=== PATIENT | male | born 1995 | race Caucasian/White ===

== ENCOUNTER 2022-08-23 10:08 | Emergency (ER) | payer BC, SELFPAY ==
[2022-08-23] VITALS (25 sets, daily range): BP systolic 131–147; BP diastolic 57–82; PULSE 61–68; RESP 14–18; TEMP 36.5–36.8; O2SAT 99–100
--- NOTE | 2022-08-23 12:13 | ED.GENADULT ---
HPI - General Adult General Chief complaint: Unspecified Stated complaint: nosebleed 1 week ago/w[place]sworth Time Seen by Provider: 08/23/22 12:04 History of Present Illness HPI narrative: Pt presents with nosebleed a week ago. Pt says he has not felt himself since. Pt feels intermittently jumpy like he is having adrenaline henderson. Pt has intermittent WADSWORTH's. Pt says he just doesn't feel right. Pt says he doesn't have much of an appetite. Pt has no history of anxiety or panic. Pt just moved to [facility] and has no PCP. Related Data Home Medications Medication Instructions Recorded Confirmed No Home Medications 08/23/22 08/23/22 Allergies Allergy/AdvReac Type Severity Reaction Status Date / Time No Known Allergies Allergy Verified 08/23/22 10:15 Review of Systems Review of Systems: All systems reviewed & are unremarkable except as noted in HPI and below Exam Const: General: cooperative, healthy appearing, comfortable and no acute distress Nutritional Appearance: average body habitus and well nourished Orientation/consciousness: patient oriented x3 Limitations: no limitations HENMT: Head: normal to inspection Mouth: Yes Normal oral and palatal mucosa present Eyes: General: appearance normal, both eyes and all related structures Conjunctivae: conjunctivae normal EOM: EOMs intact bilaterally Neck: Neck: normal visual inspection, full ROM, no lymphadenopathy and supple Resp: Effort & Inspection: normal respiratory effort Auscultation: clear to auscultation bilaterally Cardio: Rate: regular rate Rhythm: regular rhythm GI: Inspection: normal to inspection GI Palp: Yes Soft to palpation and Yes No hepatosplenomegaly present Auscultation: normal bowel sounds Skin: General skin exam: normal color Neuro: General: patient oriented x3 and moves all extremities Cranial nerves: Yes CN's II-XII intact bilaterally Speech: normal speech Gait exam (Neuro): Normal gait present Motor exam (neuro): 5/5 motor strength present throughout Sensory Exam: normal sensation Extrem: General: normal to inspection Psych: Appearance: grossly normal Mental Status: mental status grossly normal Speech and movement: Normal speech and movement present Affect: normal affect Attitude: cooperative Thought process: Normal thought process present Thought content: Yes Normal thought content present Judgement: Good judgement present (Psych) Course Vital Signs Vital signs: Vital Signs Temperature 97.7 F 08/23/22 10:10 Pulse Rate 68 08/23/22 10:10 Respiratory Rate 18 08/23/22 10:10 Blood Pressure 144/82 H 08/23/22 10:10 Pulse Oximetry 100 08/23/22 10:10 Oxygen Delivery Room Air 08/23/22 10:10 Temperature 98.3 F 08/23/22 12:02 Pulse Rate 66 08/23/22 14:46 Respiratory Rate 16 08/23/22 14:46 Blood Pressure 136/74 08/23/22 14:46 Pulse Oximetry 100 08/23/22 14:46 Oxygen Delivery Room Air 08/23/22 10:10 Medical Decision Making Vital Signs Vital Signs: Vital Signs Temperature 97.7 F 08/23/22 10:10 Pulse Rate 68 08/23/22 10:10 Respiratory Rate 18 08/23/22 10:10 Blood Pressure 144/82 H 08/23/22 10:10 Pulse Oximetry 100 08/23/22 10:10 Oxygen Delivery Room Air 08/23/22 10:10 Temperature 98.3 F 08/23/22 12:02 Pulse Rate 66 08/23/22 14:46 Respiratory Rate 16 08/23/22 14:46 Blood Pressure 136/74 08/23/22 14:46 Pulse Oximetry 100 08/23/22 14:46 Oxygen Delivery Room Air 08/23/22 10:10 Lab Data Result diagrams: 08/23/22 12:43 08/23/22 12:43 Labs: Lab Results 08/23/22 08/23/22 08/23/22 Range/Units 12:43 12:43 12:43 WBC 5.8 (4.5-10.0) K/mm3 RBC 4.97 (4.6-6.20) M/mm3 Hgb 14.8 (14.0-18.0) g/dL Hct 44.2 (42.0-52.0) % MCV 88.9 (80-100) fl MCH 29.8 (26-34) pg MCHC 33.5 (32-36) g/dl RDW 13.2 (11.5-14.5) % Plt Count 255 (150-375) k/mm3 MPV 10.2 (7.4-10.4) fl Immature Gran
[2022-08-23 13:01] LABS: Basophils Percent Auto 0.2 % (0.2-1.2); Eosinophils Absolute Auto 0.1 K/mm3 (0-0.3); Eosinophils Percent Auto 0.9 % (0-4.4); Hematocrit 44.2 % (42.0-52.0); Hemoglobin 14.8 g/dL (14.0-18.0); Immature Granulocyte Absolute 0.02 K/mm3 (0.00-0.031); Immature Granulocyte Percent A 0.3 % (0-0.5); Lymphocytes Absolute Auto 1.17 K/mm3 (0.9-3.2); Lymphocytes Percent Auto 20.2 % (18.3-44.2); Mean Corpuscular HGB Conc 33.5 g/dl (32-36); Mean Corpuscular Hemoglobin 29.8 pg (26-34); Mean Corpuscular Volume 88.9 fl (80-100); Mean Platelet Volume 10.2 fl (7.4-10.4); Monocytes Absolute Auto 0.5 K/mm3 (0.1-0.6); Monocytes Percent Auto 8.3 % (2.6-8.5); Neutrophils Absolute Auto 4.1 K/mm3 (1.3-6.7); Neutrophils Percent Auto 70.1 % (45.5-73.1); Platelet Count Result 255 k/mm3 (150-375); Red Blood Count 4.97 M/mm3 (4.6-6.20); Red Cell Distribution Width 13.2 % (11.5-14.5); White Blood Count 5.8 K/mm3 (4.5-10.0)
[2022-08-23 13:10] LABS: Alanine Aminotransferase 15 U/L (6-50); Alkaline Phosphatase 65 U/L (38-126); Anion Gap 15 mmol/L (8-16); Aspartate Amino Transferase 24 U/L (17-59); Bilirubin,Total 0.8 mg/dL (0.2-1.3); Blood Urea Nitrogen 13 mg/dL (9-20); Calcium 9.1 mg/dL (8.4-10.2); Carbon Dioxide 26 mmol/L (22-30); Chloride 101 mmol/L (98-107); Estimated CRCL calculation 106 ml/min; Estimated Glomerular Filt Rate > 60; Glucose 94 mg/dL (65-110); Potassium 3.7 mmol/L (3.4-5.0); Sodium 142 mmol/L (137-145)
== END 2022-08-23 15:00 | disposition home or self-care (01) ==
PROVIDERS: Emergency Provider Emergency Medicine
DX: R51.9 Headache, unspecified (principal)
CPT/HCPCS: 36415; 80053; 84443; 85025; 99283

== ENCOUNTER 2025-08-03 17:48 | Emergency (ER) | payer BC, SELFPAY ==
--- NOTE | ~2025-08-03 | CT_ITS ---
EXAMINATION: CT abdomen pelvis wo con, 08/03/2025 18:10 CDT HISTORY: Onset this AM, Rt. flank pain COMPARISON: No comparisons available. TECHNIQUE: CT scan of the abdomen and pelvis was performed without IV contrast. One or more of the following dose reduction techniques were used: automated exposure control, adjustment of the mA and/or kV according to patient size, use of iterative reconstruction technique. Unless otherwise stated, incidental findings do not require dedicated follow up imaging FINDINGS: CT abdomen: LUNG BASES: The lung bases are clear. The visualized portions of the heart and pericardium are unremarkable. LIVER: Unremarkable, liver contours intact, no lesions. SPLEEN: Unremarkable, no splenomegaly. KIDNEYS: Moderate to severe right-sided hydronephrosis and hydroureter, no renal calculi are identified or ureteral calculi. Right Kidney: Unremarkable. No calculi. No hydronephrosis. Left Kidney: Unremarkable. No calculi. No hydronephrosis ADRENAL GLANDS: Unremarkable. PANCREAS: Unremarkable. GALLBLADDER/BILIARY: Unremarkable. No biliary dilatation. STOMACH AND ESOPHAGUS: Visualized stomach and esophagus within normal limits. BOWEL/MESENTERY: Moderate fecal content, no colitis or diverticulitis. Appendix normal. Mesentery normal. No thickening or dilated loops of small bowel. ADENOPATHY/RETROPERITONEUM: No lymphadenopathy. AORTA/VASCULATURE: Normal caliber aorta. FREE FLUID OR FREE AIR: None. CT pelvis: SOLID ORGANS/REPRODUCTIVE: Unremarkable. BLADDER: Within normal limits. OSSEOUS STRUCTURES: No acute osseous abnormality.No suspicious lesions. OVERLYING SOFT TISSUES: Unremarkable. IMPRESSION: 1. Right-sided hydronephrosis and hydroureter. There is no obstruction calcified ureteral calculus. Differential includes an obstructing noncalcified calculus or stricture. Correlate with urinalysis. Follow-up is recommended to assess resolution Reviewed, dictated and finalized at location P. IMPRESSION: 1. Right-sided hydronephrosis and hydroureter. There is no obstruction calcifie d ureteral calculus. Differential includes an obstructing noncalcified calculus or stricture. Correlate with urinalysis. Follow-up is recommended to assess re solution
[2025-08-03 17:48] VITALS: BP 157/97; PULSE 84; RESP 16; TEMP 36.6; O2SAT 100
--- OUTSIDE RECORDS SUMMARY | 2025-08-03 17:51 | XMS_ITS | Clinical Summary ---
Author Organization [facility] Address [address] [place] [address] Phone Care Team Providers Care Dairy Farm Supervisor Name Role Phone Provider, None Primary Care Provider Unavailabl e Allergies Active Allergy Reactions Criticality Noted Date Comments Hydrocodone Hives 02/04/2016 Medications AMOXICILLIN PO Take by mouth. 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 Gender Identity Not on file Sexual Orientation Not on file Last Filed Vital Signs Vital Sign Reading Time Taken Comments Blood Pressure 139/77 06/05/2018 7:48 AM CDT Pulse 83 06/05/2018 7:48 AM CDT Temperature 36.8 C (98.3 F) 05/27/2018 12:42 PM CDT Respiratory Rate 16 06/05/2018 7:48 AM CDT Oxygen Saturation 99% 05/27/2018 12:42 PM CDT Inhaled Oxygen Concentration - - Weight 64 kg (141 lb) 06/15/2018 2:08 PM CDT Height 177.8 cm (5' 10) 06/15/2018 2:08 PM CDT Body Mass Index 20.23 06/15/2018 2:08 PM CDT Plan of Treatment Health Maintenance Due Date Last Done Comments Hepatitis C Virus (HCV) Screening 1995 TdaP Immunization 1995 Human Papillomavirus (HPV) Immunization (1 - 3-dose SCDM series) 02/17/2020 Influenza Immunization (#1) 2025 SARS-COV-2 Immunization ( - season) 2025 Respiratory Syncytial Virus (RSV) Immunization (Adult) (1 - 1-dose 75+ series) 02/17/2068 DTaP/Tdap/Td Immunization Discontinued 1997, 11/14/1996, 09/05/1996, Additional history exists Hepatitis B Immunization Completed 998, 10/10/1996, 09/05/1996 Meningococcal Immunization (ACWY) Aged Out No longer eligible based on patient's age to complete this topic Pneumococcal Immunization Combined Aged Out No longer eligible based on patient's age to complete this topic Rotavirus Immunization Aged Out No lo nger eligible based on patient's age to complete this topic Insurance Care Teams Dairy Farm Supervisor Relationship Specialty Start Date End Date Provider, None [place] PCP - General 03/26/13
[2025-08-03] MEDS: SODIUM CHLORIDE 0.9% IV 1,000 ML 999 ML IV CONT (18:06)
[2025-08-03] MEDS: ONDANSETRON INJ 4 MG/2 ML VIAL IV PUSH (18:07)
[2025-08-03] MEDS: KETOROLAC 30 MG/ML VIAL (*BKC) IV PUSH (18:07)
--- NOTE | 2025-08-03 18:11 | PC.NURSE ---
On 08/03/25, the student, [sheldon sykes], provided care and [facility] on this [facility]. I have reviewed the student's documentation and agree with the findings.
[2025-08-03 18:15] LABS: Hematocrit 44.3 % (40.0-54.0); Hemoglobin 14.9 g/dL (14.0-18.0); Immature Granulocyte Percent A 0.4 % (0.0-0.0); Lymphocytes Absolute Auto 0.84 K/mm3 (1.10-4.50); Mean Corpuscular HGB Conc 33.6 g/dL (32-36); Mean Corpuscular Hemoglobin 29.2 pg (27.0-31.0); Mean Corpuscular Volume 86.7 fL (78.0-102.0); Nucleated Red Blood Cells Absolute Auto 0.00 K/mm3 (0.00-0.00); Nucleated Red Blood Cells Perc 0.0 % (0-0.0); Platelet Count Result 307 K/mm3 (150-420); Red Blood Count 5.11 M/mm3 (4.70-6.10); White Blood Count 14.0 K/mm3 (4.8-10.8)
[2025-08-03 18:22] LABS: INR 1.0; Partial Thromboplastin Time 26.8 Sec (23.9-30.70); Prothrombin Time 10.9 Seconds (9.50-12.1)
[2025-08-03 18:39] LABS: Alanine Aminotransferase 16 U/L (6-50); Albumin Level 5.4 g/dL (3.5-5.1); Alkaline Phosphatase 72 U/L (38-126); Anion Gap 15 mmol/L (4-12); Aspartate Amino Transferase 31 U/L (17-59); Bilirubin,Total 1.0 mg/dL (0.2-1.3); Blood Urea Nitrogen 14 mg/dL (9-20); Calcium 10.0 mg/dL (8.4-10.2); Carbon Dioxide 23 mmol/L (22-30); Chloride 101 mmol/L (98-107); Estimated CRCL calculation 68 ml/min; Estimated Glomerular Filt Rate > 60; Glucose 115 mg/dL (65-110); Osmolality Calculated 289 mOsm/kg (285-295); Potassium 3.9 mmol/L (3.4-5.0); Sodium 139 mmol/L (137-145); Total Protein 10.7 g/dL (6.3-8.2)
--- OUTSIDE RECORDS SUMMARY | 2025-08-03 18:39 | XMS_ITS | Clinical Summary ---
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
[2025-08-03 18:40] LABS: Add Urine Microscopic? NO; Appearance Urine Clear (Clear); Glucose Urine UA Negative (Negative); Leukocyte Esterase Ur Negative LEU/UL (Negative); Nitrate Urine Negative (Negative); Specific Grav Ur 1.025 (1.010-1.020)
[2025-08-03 18:54] LABS: Lipase 66 U/L (23-300)
--- NOTE | 2025-08-03 19:43 | ED_ITS ---
HPI - Abdominal Pain General Chief Complaint: Urogenital-Male Stated Complaint: rt. side flank pain Time Seen by Provider: 08/03/25 17:54 Source: patient and family Mode of arrival: ambulatory Limitations: no limitations History of Present Illness HPI narrative: this is a 30-year-old male who presents with some right-sided flank pain with no abdominal pain no radiation of his pain no dysuria or hematuria no fever chills no chest pain or shortness of breath. Patient states that he has have a history of kidney stones in the past. MD elicited complaint: flank pain Onset (ago): hour(s) Pain Consistency: intermittent Location: R flank Severity: severe Pain scale (0-10): 10 Quality: aching Radiation: R flank Migration to: no migration Related Data Allergies Allergy/AdvReac Type Severity Reaction Status Date / Time No Known Allergies Allergy Verified 08/03/25 18:10 Review of Systems 2 Review of Systems: All systems reviewed & are unremarkable except as noted in HPI and below PMFSH Past Medical History Medical History History of kidney stones Exam 2 Const: General: healthy appearing and no acute distress Nutritional Appearance: well nourished Orientation/consciousness: patient oriented x3 Resp: Effort & Inspection: normal respiratory effort Auscultation: clear to auscultation bilaterally Cardio: Rate: regular rate Rhythm: regular rhythm GI: GI Palp: Yes Soft to palpation Auscultation: normal bowel sounds : General: Yes CVA tenderness ( right flank pain to palpation) Back/Spine/Pelvis: Back: CVA tenderness Course Course Emergency Course: medical decision making narrative: The patient was evaluated by myself in the emergency department. History obtained from patient who is an independent historian and physical exam performed and witnessed by nurse. CT scan performed shows right-sided mild hydronephrosis with some possible adhesion but no kidney stone visualized. White count mildly elevated, the patient did receive 30mg of Toradol IV and additional 2mg IV morphine along with IV Zofran. Urinalysis with some few red cells. Repeat assessment Patient doing well on repeat exam with no acute distress Symptoms have improved since arrival to the emergency department Repeat vitals are stable Patient agrees with discussion and after shared medical decision making and agrees with discharge. All questions answered to the patient's satisfaction. Follow-up with primary care within 3 to 5 days for further evaluation treatment. Vital Signs Vital signs: Vital Signs Temperature 36.6 C 08/03/25 17:48 Pulse Rate 84 08/03/25 17:48 Respiratory Rate 16 08/03/25 17:48 Blood Pressure 157/97 H 08/03/25 17:48 Pulse Oximetry 100 08/03/25 17:48 Oxygen Delivery Room Air 08/03/25 17:48 Temperature 36.6 C 08/03/25 17:48 Pulse Rate 84 08/03/25 17:48 Respiratory Rate 16 08/03/25 17:48 Blood Pressure 157/97 H 08/03/25 17:48 Pulse Oximetry 100 08/03/25 17:48 Oxygen Delivery Room Air 08/03/25 17:48 MDM - Abdominal Pain Lab Data 08/03/25 18:07 08/03/25 18:07 Labs: Lab Results 08/03/25 08/03/25 Range/Units 18:07 18:32 WBC 14.0 H (4.8-10.8) K/mm3 RBC 5.11 (4.70-6.10) M/mm3 Hgb 14.9 (14.0-18.0) g/dL Hct 44.3 (40.0-54.0) % MCV 86.7 (78.0-102.0) fL MCH 29.2 (27.0-31.0) pg MCHC 33.6 (32-36) g/dL RDW 12.8 (11.6-14.4) % Plt Count 307 (150-420) K/mm3 MPV 10.0 (8.7-11.0) fl Immature Gran % (Auto) 0.4 H (0.0-0.0) % Neut % (Auto) 87.5 H (50.0-70.0) % Lymph % (Auto) 6.0 L (18.0-42.0) % [place] % (Auto) 5.9 (2.0-11.0) % Eos % (Auto) 0.1 L (1.0-6.0) % Baso % (Auto) 0.1 (0.0-1.0) % Lymph # (Auto) 0.84 L (1.10-4.50) K/mm3 [place] # (Auto) 0.83 (0.10-0.90) K/mm3 Eos # (Auto) 0.02 (0.02-0.50) K/mm3 Baso # (Auto) 0.02 (0.00-0.10) K/mm3 Abs Immat Gran (auto) 0.06 H (0.00-0.00) K/mm3 Absolute Neuts (auto) 12.23 H (1.70-7.20) K/mm3 Absolute Nucleated RBC 0.00 (0.00-0.00) K/mm3 Nucleated RBC % 0.0 (0-0.0) % PT 10.9 (9.50-12.1) Seconds INR 1.0 APTT 26.8 (23.9-30.70) Sec Sodium 139 (137-145) mmol/L Potassium 3.9 (3.4-5.0) mmol/L Chloride 101 (98-107) mmol/L Carbon Dioxide 23 (22-30) mmol/L Anion Gap 15 H (4-12) mmol/L BUN 14 (9-20) mg/dL Creatinine 1.17 (0.7-1.3) mg/dL Estim Creat Clear Calc 68 ml/min Estimated GFR > 60 (59 - ) Glucose 115 H (65-110) mg/dL Calculated Osmolality 289 (285-295) mOsm/kg Lactic Acid 1.1 (0.4-2.0) mmol/L Calcium 10.0 (8.4-10.2) mg/dL Total Bilirubin 1.0 (0.2-1.3) mg/dL AST 31 (17-59) U/L ALT 16 (6-50) U/L Alkaline Phosphatase 72 (38-126) U/L Total Protein 10.7 H (6.3-8.2) g/dL Albumin 5.4 H (3.5-5.1) g/dL Lipase 66 (23-300) U/L Urine Color Light yellow (Yellow) Urine Appearance Clear (Clear) Urine pH 6.0 (5.0-8.0) Ur Specific [place] 1.025 H (1.010-1.020) Urine Protein Negative (Negative) Urine Glucose (UA) Negative (Negative) Urine Ketones 1+ H (Negative) Ur Blood (Man) Trace-intact H (Negative) Urine Nitrate Negative (Negative) Urine Bilirubin Negative (Negative) Urine Urobilinogen 0.2 (0.2-1.0) mg/dL Leukocyte Esterase Rfl Negative (Negative) BARBRA/UL Imaging Data Radiologist's impression: ITS Impressions Abdomen/Pelvis CT 08/03/25 18:45 IMPRESSION: 1. Right-sided hydronephrosis and hydroureter. There is no obstruction calcified ureteral calculus. Differential includes an obstructing noncalcified calculus or stricture. Correlate with urinalysis. Follow-up is recommended to assess resolution Critical Care Time Critical Care Time Critical Care Time: No Discharge Plan Discharge Clinical Impression: Urinary tract infection, Acute flank pain, Hydronephrosis due to ureteral stricture Patient Disposition: Home Condition: Stable Instructions: Antibiotic Form, Urinary Tract Infection in Men (ED), Hydronephrosis (ED) Additional Instructions: advised patient to take medication as prescribed follow with primary within next 3 to 5 days further evaluation and treatment. Patient Language: Amharic Prescriptions: New amoxicillin-pot clavulanate [Augmentin ES-600] 600-42.9 mg/5 mL suspension for reconstitution 10 ml PO BID 10 Days Qty: 200 0RF ondansetron 4 mg tablet,disintegrating 4 mg PO Q6H PRN (Reason: nausea and vomiting) Qty: 10 0RF tramadol 5 mg/mL solution 100 mg PO Q6H PRN (Reason: pain) 7 Days Qty: 200 0RF Follow-up/Referrals: PHYSICIAN,HIGH SPEED PRINTER OPERATOR [Primary Care Provider, Internal Medicine] Time of Disposition: 19:51
[2025-08-03] MEDS: MORPHINE SULFATE (*CRX) 2 MG/ML INJ IV PUSH (19:52)
[2025-08-03 20:35] VITALS: BP 135/90; PULSE 73; RESP 16; TEMP 36.6; O2SAT 99
--- NOTE | 2025-08-07 14:40 | PC.NURSE ---
blood culture, preliminary no growth
--- NOTE | 2025-08-08 12:19 | PC.NURSE ---
PRELIMINARY BLOOD CULTURE REPORT; NO GROWTH IN 48 HOURS
--- NOTE | 2025-08-11 17:09 | PC.NURSE ---
final blood cultures x2 reviewed. no growth in five days. no change in plan of care
== END 2025-08-03 20:35 | disposition home or self-care (01) ==
PROVIDERS: Emergency Provider Emergency Medicine; Referring Provider Internal Medicine
DX: N39.0 Urinary tract infection, site not specified (principal); N13.1 Hydronephrosis with ureteral stricture, not elsewhere classified
CPT/HCPCS: 36415; 74176; 80053; 81003; 83605; 83690; 85025; 85610; 85730; 87040; 96361; 96374; 96375; 99284; J1885; J2270; J2405; J7030

== ENCOUNTER 2025-08-08 16:52 | Observation (INO) | payer BC, SELFPAY ==
--- NOTE | ~2025-08-08 | NM_ITS ---
EXAMINATION: [facility] [place] renal scan DATE: 08/09/2025 14:01 INDICATION: Right UPJ obstruction TECHNIQUE: 8 mCi Tc-99m MAG3 was administered IV. 40 mg furosemide was administered IV immediately afterward. The patient was scanned in the supine position. A posterior abdominal radionuclide angiogram was obtained. A subsequent time course of static images of the kidneys, ureters, and bladder was obtained. COMPARISON: CT dated 08/08/2025 and fluoroscopic study dated 08/09/2025 FINDINGS: The posterior abdominal radionuclide angiogram and sequential static images show normal size, position, and morphology of the kidneys. Peak renal parenchymal uptake was 2.5 min in left kidney and 5.5 min in right kidney (normal peak 3-5 minutes). The relative early renal uptake was 59% on the left and 41% on the right (<40% is abnormal). Increased prominence of the right renal hilum consistent with in the moderate hydronephrosis seen on the recent prior imaging. No abnormalities of the ureters or bladder are seen. T1/2 for clearance of activity from the left kidney and proximal collecting system was 6 minutes. T1/2 for clearance of activity from the right kidney and proximal collecting system was 17 minutes. Notes on interpretation: T1/2 <10 minutes is normal, 10-15 minutes is low grade obstruction of questionable clinical significance, 15-20 minutes is partial obstruction that is likely clinically significant, >20 minutes is high grade obstruction. Note that false positives may be seen with supine positioning, dehydration, severely dilated nonobstructed kidney, atonic collecting system, poor renal function, and chronic furosemide use. IMPRESSION: 1. Mildly decreased left renal function with left kidney contributing only 41% to total renal function. 2. Right infraspinatus and right kidney with mildly delayed time to peak and moderately delayed T1/2 of activity clearance from the right renal kidney consistent with partial obstruction that is likely clinically significant. Reviewed, dictated and finalized at location A. IMPRESSION: 1. Mildly decreased left renal function with left kidney contributing only 41% to total renal function. 2. Right infraspinatus and right kidney with mildly delayed time to peak and m oderately delayed T1/2 of activity clearance from the right renal kidney consis tent with partial obstruction that is likely clinically significant.
--- NOTE | ~2025-08-08 | CT_ITS ---
CT abdomen pelvis w con INDICATION:r flank pain, hydroureternephrosis . COMPARISON: None. TECHNIQUE: Axial images of the abdomen and pelvis were obtained following infusion of 100 mL Isovue 300. Dose optimization technique was utilized. FINDINGS: The lung bases are clear. The liver parenchyma is unremarkable. No intrahepatic mass or ductal dilatation is evident. The gallbladder is unremarkable. The pancreas and spleen are normal in appearance. The adrenal glands are symmetric in size. There is right hydronephrosis with diminished enhancement as compared to the left kidney. No obstructing stone seen. No cystic mass is evident. There is no solid mass. Evaluation of the stomach and bowel loops are limited due to lack of oral contrast. The appendix is normal in appearance. The bladder and rectum are normal. No free intraperitoneal fluid or air is evident. There is no significant retroperitoneal lymphadenopathy. The aorta, visceral vessels and renal arteries demonstrate normal caliber and patency. The lower thoracic and lumbar vertebrae are in normal alignment. IMPRESSION: Severe right hydronephrosis with asymmetric decreased enhancement seen. There is no obstructive stone evident. All CT scans at this facility are performed using low dose modulation techniques as appropriate to perform exam including the following: automated exposure control; use of iterative reconstruction technique; adjustment of the mA and/or kV according to patient size (this includes techniques or standardized protocols for targeted exams where dose is matched to indication/reason for exam). Reviewed, dictated and finalized at location S. IMPRESSION: Severe right hydronephrosis with asymmetric decreased enhancement seen. There i s no obstructive stone evident. All CT scans at this facility are performed using low dose modulation techniqu es as appropriate to perform exam including the following: automated exposure c ontrol; use of iterative reconstruction technique; adjustment of the mA and/or kV according to patient size (this includes techniques or standardized protocol s for targeted exams where dose is matched to indication/reason for exam).
--- NOTE | ~2025-08-08 | XR_ITS ---
EXAMINATION: XR retrograde pyelo w/stent RT DATE: 08/09/2025 07:58 INDICATION: Cystoscopy. Severe right hydronephrosis. TECHNIQUE: 3 fluoroscopic images of the abdomen and pelvis were obtained during procedure performed by Dr. Yusuf. Radiologist was not present for the imaging or procedure. The amount of fluoroscopy time used during this procedure was 1.1 minutes. Total DAP was 0.714 mGym^2. COMPARISON: CT dated 08/08/2025 FINDINGS: Harness Preparer image demonstrates a right ureteropelvic junction obstruction with delayed right nephrogram and moderate hydronephrosis with residual contrast in the right renal collecting system related to the earlier contrast-enhanced CT. Subsequent images demonstrate placement of a right internal ureteral stent with loops formed in the right renal pelvis and the contrast-filled bladder. IMPRESSION: 1. Right UPJ obstruction with moderate right hydronephrosis and delayed right nephrogram. 2. Placement of a right internal ureteral stent which is in expected position. Reviewed, dictated and finalized at location A. IMPRESSION: 1. Right UPJ obstruction with moderate right hydronephrosis and delayed right n ephrogram. 2. Placement of a right internal ureteral stent which is in expected position.
[2025-08-08 17:31] VITALS: BP 138/80; PULSE 76; RESP 16; TEMP 37.1; O2SAT 99
--- OUTSIDE RECORDS SUMMARY | 2025-08-08 17:58 | XMS_ITS | Clinical Summary ---
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
--- NOTE | 2025-08-08 18:01 | ED_ITS ---
HPI - Male Genitourinary General Chief complaint: Urogenital-Male <Do Rebollar PA-C - Last Filed: 08/09/25 17:22> Stated complaint: hydronephrosis and UTI <Do Rebollar PA-C - Last Filed: 08/09/25 17:22> Time Seen by Provider: 08/08/25 18:01 <Do Rebollar PA-C - Last Filed: 08/09/25 17:22> Focused HPI: This is a 30 year old male that presents to the ER for right flank pain. Reports radiation to the abdomen. Reports he was diagnosed with a UTI. Reports pain started worsening again the last couple of days. Reports he is taking Augmentin for the UTI. Reports some vomiting. Denies fever. GENERAL: Well-appearing, well-nourished, and in no acute distress. HEAD: Normocephalic, atraumatic. CHEST: Clear to auscultation. ?No respiratory distress. HEART: Regular rate and rhythm.? NEURO: ?Alert and oriented x3. Patient screened in triage and initial orders placed.? ?Additional care and disposition to be based upon?diagnostic testing and treatment. <Do Rebollar PA-C - Last Filed: 08/09/25 17:22> History of Present Illness HPI Narrative: Agree with the HPI above. <Hang Hughes MD - Last Filed: 08/09/25 06:30> Related Data Allergies/Adverse reactions: Allergies Allergy/AdvReac Type Severity Reaction Status Date / Time No Known Allergies Allergy Verified 08/08/25 23:02 <Do Rebollar PA-C - Last Filed: 08/09/25 17:22> Review of Systems 2 Review of Systems: As reviewed above in HPI <Hang Hughes MD - Last Filed: 08/09/25 06:30> PMFSH Past Medical History Medical History: Medical History History of kidney stones <Do Rebollar PA-C - Last Filed: 08/09/25 17:22> Family History Family History: Family History (Updated 08/08/25 @ 23:03 by Melanie Ackerman RN) Grandparent Prostate carcinoma <Do Rebollar PA-C - Last Filed: 08/09/25 17:22> Social History Social History: Social History Smoking status: Former smoker Tobacco type: cigarettes Alcohol intake: current Substance use: never Substance use type: does not use Lack of Transportation: No Lack of Food: Never True Current Housing: I Have Housing Concerned About Future Housing: No Difficulty Paying Gas/Electric Bills: No Difficulty Paying for Meds: No Currently Unemployed: No Education: High School Diploma/GED Difficulty w/ Childcare or Family Care: No Spiritual care concerns: No <Do Rebollar PA-C - Last Filed: 08/09/25 17:22> Exam 2 Narrative: GENERAL: [Well-appearing, well-nourished, and in no acute distress.] HEAD: [Normocephalic, atraumatic.] EYES: [PERRLA and EOMI.] ENT: Nares clear, no rhinorrhea or epistaxis. Mucous membranes moist. NECK: Supple. CHEST: [Clear to auscultation. No respiratory distress.] HEART: [Regular rate and rhythm]. No murmur heard. [Normal peripheral pulses.] ABDOMEN: [Soft, nondistended], CVA tenderness, no overlying skin changes. No rigidity guarding. No abdominal tenderness in the lower quadrants. EXTREMITIES: Normal range of motion. [No edema.] SKIN: Warm, dry, no rash. NEURO: [No focal deficits]. Alert and oriented [x3.] PSYCH: [Normal mood and affect.] <Hang Hughes MD - Last Filed: 08/09/25 06:30> Course Vital Signs Vital signs: Vital Signs Temperature 98.7 F 08/08/25 17:31 Pulse Rate 76 08/08/25 17:31 Respiratory Rate 16 08/08/25 17:31 Blood Pressure 138/80 08/08/25 17:31 Pulse Oximetry 99 08/08/25 17:31 Oxygen Delivery Room Air 08/08/25 17:31 Temperature 96.8 F L 08/09/25 14:00 Pulse Rate 74 08/09/25 14:00 Respiratory Rate 16 08/09/25 14:00 Blood Pressure 123/78 08/09/25 14:00 Pulse Oximetry 92 08/09/25 14:00 Oxygen Delivery Room Air 08/09/25 09:10 Oxygen Flow Rate 6 08/09/25 08:25 <Do Rebollar PA-C - Last Filed: 08/09/25 17:22> Vital Signs Temperature 98.7 F 08/08/25 17:31 Pulse Rate 76 08/08/25 17:31 Respiratory Rate 16 08/08/25 17:31 Blood Pressure 138/80 08/08/25 17:31 Pulse Oximetry 99 08/08/25 17:31 Oxygen Delivery Room Air 08/08/25 17:31 Temperature 96.8 F L 08/09/25 14:00 Pulse Rate 74 08/09/25 14:00 Respiratory Rate 16 08/09/25 14:00 Blood Pressure 123/78 08/09/25 14:00 Pulse Oximetry 92 08/09/25 14:00 Oxygen Delivery Room Air 08/09/25 09:10 Oxygen Flow Rate 6 08/09/25 08:25 <Hang Hughes MD - Last Filed: 08/09/25 06:30> MDM - Male Genitourinary MDM Narrative Medical decision making narrative: 30-year-old male presenting to the ER for evaluation of right-sided flank pain. He went to another facility about 5 days ago was diagnosed with hydroureteronephrosis and urinary tract infection. Sent home with antibiotics. No improvement symptoms and having worsening pain. Denies any fever, chills. Endorses nausea vomiting and worsening pain in the right flank. Pain does not radiate anywhere. History of kidney stones prior but no stone evidence several days ago. CT scan done without contrast showed hydroureteronephrosis with possibility of non radiopaque stone versus stricture formation causing his symptoms. Was not able to follow-up with his PCP or Urology yet. He is uncomfortable appearing does have reproducible pain right CVA but his vital signs are normal he is afebrile. Differential includes recent kidney stone passing, non radiopaque kidney stone, hydronephrosis from stricture formation, neoplasm, UTI, pyelonephritis. Workup underway including CBC, CMP, urinalysis and a CT scan with contrast this time to evaluate for other potential sources of symptoms. He was given morphine fluids and Zofran. Workup shows leukocytosis of 12.9. Normal hemoglobin. Normal platelet count. PT and PTT unremarkable. Electrolytes unremarkable. Normal kidney function. Urinalysis unremarkable. CT scan shows severe right-sided hydronephrosis and asymmetric decreased enhancement. No obvious obstructing stone. Spoke to the urologist on-call doctor right back who recommended patient being made NPO for stent placement to decompress his hydronephrosis likely obstructions source being a vascular anomaly versus stricture. Recommended hospitalist admission. Spoke to the hospitalist service who accepted the patient to the hospital at this time. <Hang Hughes MD - Last Filed: 08/09/25 06:30> Medical Records Attestation: I reviewed the patient's medical records. <Hang Hughes MD - Last Filed: 08/09/25 06:30> Lab Data Attestation: I reviewed the patient's lab results. <Hang Hughes MD - Last Filed: 08/09/25 06:30> Result diagrams: 08/09/25 05:57 08/09/25 05:57 <Do Rebollar PA-C - Last Filed: 08/09/25 17:22> Labs: Lab Results 08/08/25 Range/Units 19:17 WBC 12.9 H (4.5-10.0) K/mm3 RBC 4.91 (4.6-6.20) M/mm3 Hgb 14.3 (14.0-18.0) g/dL Hct 42.7 (42.0-52.0) % MCV 87.0 (80-100) fl MCH 29.1 (26-34) pg MCHC 33.5 (32-36) g/dl RDW 12.9 (11.5-14.5) % Plt Count 285 (150-375) k/mm3 MPV 9.8 (7.4-10.4) fl Immature Gran % (Auto) 0.5 (0-0.5) % Neut % (Auto) 81.9 H (45.5-73.1) % Lymph % (Auto) 9.5 L (18.3-44.2) % [place] % (Auto) 7.6 (2.6-8.5) % Eos % (Auto) 0.3 (0-4.4) % Baso % (Auto) 0.2 (0.2-1.2) % Lymph # (Auto) 1.23 (0.9-3.2) K/mm3 [place] # (Auto) 1.0 H (0.1-0.6) K/mm3 Eos # (Auto) 0.0 (0-0.3) K/mm3 Baso # (Auto) 0.0 (0.0-0.1) K/mm3 Abs Immat Gran (auto) 0.06 H (0.00-0.031) K/mm3 Absolute Neuts (auto) 10.5 H (1.3-6.7) K/mm3 Absolute Nucleated RBC 0.000 (0.0-0.012) K/mm3 Nucleated RBC % 0.0 (0.0-0.2) % Sodium 134 L (137-145) mmol/L Potassium 3.6 (3.4-5.0) mmol/L Chloride 99 (98-107) mmol/L Carbon Dioxide 25 (22-30) mmol/L Anion Gap 10 (4-12) mmol/L BUN 13 (9-20) mg/dL Creatinine 1.11 (0.7-1.3) mg/dL Estim Creat Clear Calc 77 ml/min Estimated GFR > 60 (59 - ) Glucose 100 (65-110) mg/dL Calcium 9.1 (8.4-10.2) mg/dL Total Bilirubin 1.1 (0.2-1.3) mg/dL AST 27 (17-59) U/L ALT 14 (6-50) U/L Alkaline Phosphatase 74 (38-126) U/L Total Protein 8.2 (6.3-8.2) g/dL Albumin 5.0 (3.5-5.1) g/dL Lipase 66 (23-300) U/L Urine Color Yellow (Yellow) Urine Appearance Clear (Clear) Urine pH 6.0 (5.0-9.0) Ur Specific [place] 1.014 (1.001-1.035) Urine Protein Negative (Negative) mg/dL Urine Glucose (UA) Negative (Negative) mg/dL Urine Ketones 1+ H (Negative) mg/dL Ur Blood (Man) Negative (Negative) Urine Nitrate Negative (Negative) Urine Bilirubin Negative (Negative) Urine Urobilinogen 1.0 (<2.0) mg/dL Leukocyte Esterase Rfl Negative (Negative) BARBRA/UL <Do Rebollar PA-C - Last Filed: 08/09/25 17:22> Lab Results 08/08/25 Range/Units 19:17 WBC 12.9 H (4.5-10.0) K/mm3 RBC 4.91 (4.6-6.20) M/mm3 Hgb 14.3 (14.0-18.0) g/dL Hct 42.7 (42.0-52.0) % MCV 87.0 (80-100) fl MCH 29.1 (26-34) pg MCHC 33.5 (32-36) g/dl RDW 12.9 (11.5-14.5) % Plt Count 285 (150-375) k/mm3 MPV 9.8 (7.4-10.4) fl Immature Gran % (Auto) 0.5 (0-0.5) % Neut % (Auto) 81.9 H (45.5-73.1) % Lymph % (Auto) 9.5 L (18.3-44.2) % [place] % (Auto) 7.6 (2.6-8.5) % Eos % (Auto) 0.3 (0-4.4) % Baso % (Auto) 0.2 (0.2-1.2) % Lymph # (Auto) 1.23 (0.9-3.2) K/mm3 [place] # (Auto) 1.0 H (0.1-0.6) K/mm3 Eos # (Auto) 0.0 (0-0.3) K/mm3 Baso # (Auto) 0.0 (0.0-0.1) K/mm3 Abs Immat Gran (auto) 0.06 H (0.00-0.031) K/mm3 Absolute Neuts (auto) 10.5 H (1.3-6.7) K/mm3 Absolute Nucleated RBC 0.000 (0.0-0.012) K/mm3 Nucleated RBC % 0.0 (0.0-0.2) % Sodium 134 L (137-145) mmol/L Potassium 3.6 (3.4-5.0) mmol/L Chloride 99 (98-107) mmol/L Carbon Dioxide 25 (22-30) mmol/L Anion Gap 10 (4-12) mmol/L BUN 13 (9-20) mg/dL Creatinine 1.11 (0.7-1.3) mg/dL Estim Creat Clear Calc 77 ml/min Estimated GFR > 60 (59 - ) Glucose 100 (65-110) mg/dL Calcium 9.1 (8.4-10.2) mg/dL Total Bilirubin 1.1 (0.2-1.3) mg/dL AST 27 (17-59) U/L ALT 14 (6-50) U/L Alkaline Phosphatase 74 (38-126) U/L Total Protein 8.2 (6.3-8.2) g/dL Albumin 5.0 (3.5-5.1) g/dL Lipase 66 (23-300) U/L Urine Color Yellow (Yellow) Urine Appearance Clear (Clear) Urine pH 6.0 (5.0-9.0) Ur Specific [place] 1.014 (1.001-1.035) Urine Protein Negative (Negative) mg/dL Urine Glucose (UA) Negative (Negative) mg/dL Urine Ketones 1+ H (Negative) mg/dL Ur Blood (Man) Negative (Negative) Urine Nitrate Negative (Negative) Urine Bilirubin Negative (Negative) Urine Urobilinogen 1.0 (<2.0) mg/dL Leukocyte Esterase Rfl Negative (Negative) BARBRA/UL <Hang Hughes MD - Last Filed: 08/09/25 06:30> Imaging Data Attestation: I personally reviewed and interpreted this imaging study as follows: < Hang Hughes MD - Last Filed: 08/09/25 06:30> My impression: Impressions Abdomen/Pelvis CT 08/08/25 20:37 IMPRESSION: Severe right hydronephrosis with asymmetric decreased enhancement seen. There is no obstructive stone evident. All CT scans at this facility are performed using low dose modulation techniques as appropriate to perform exam including the following: automated exposure control; use of iterative reconstruction technique; adjustment of the mA and/or kV according to patient size (this includes techniques or standardized protocols for targeted exams where dose is matched to indication/reason for exam). <Hang Hughes MD - Last Filed: 08/09/25 06:30> Discharge Plan Discharge Clinical Impression: Hydronephrosis of right kidney, Intractable back pain <Do Rebollar PA-C - Last Filed: 08/09/25 17:22> Patient Disposition: Still a Patient <Do Rebollar PA-C - Last Filed: 08/09/25 17:22> Condition: Stable <Do Rebollar PA-C - Last Filed: 08/09/25 17:22> Time of Disposition: 06:30 <Do Rebollar PA-C - Last Filed: 08/09/25 17:22> 06:30 <Hang Hughes MD - Last Filed: 08/09/25 06:30>
[2025-08-08 19:27] LABS: Hematocrit 42.7 % (42.0-52.0); Hemoglobin 14.3 g/dL (14.0-18.0); Immature Granulocyte Percent A 0.5 % (0-0.5); Lymphocytes Absolute Auto 1.23 K/mm3 (0.9-3.2); Mean Corpuscular HGB Conc 33.5 g/dl (32-36); Mean Corpuscular Hemoglobin 29.1 pg (26-34); Mean Corpuscular Volume 87.0 fl (80-100); Nucleated Red Blood Cells Absolute Auto 0.000 K/mm3 (0.0-0.012); Nucleated Red Blood Cells Perc 0.0 % (0.0-0.2); Platelet Count Result 285 k/mm3 (150-375); Red Blood Count 4.91 M/mm3 (4.6-6.20); White Blood Count 12.9 K/mm3 (4.5-10.0)
[2025-08-08] MEDS: SODIUM CHLORIDE 0.9% IV 1,000 ML 999 ML IV CONT (19:27)
[2025-08-08] MEDS: MORPHINE SULFATE (*CRX) 4 MG/ML INJ IV PUSH (19:27)
[2025-08-08] MEDS: cefTRIAXone 2 GM in SODIUM CHLORIDE 0.9% IV 100 ML 200 ML IVPB (19:29)
[2025-08-08] MEDS: ONDANSETRON INJ 4 MG/2 ML VIAL IV PUSH ×2 (19:29→22:31)
[2025-08-08 19:30] LABS: Add Urine Microscopic? NO; Appearance Urine Clear (Clear); Glucose Urine UA Negative (Negative); Leukocyte Esterase Ur Negative LEU/UL (Negative); Nitrate Urine Negative (Negative); Specific Grav Ur 1.014 (1.001-1.035)
[2025-08-08 20:00] LABS: Alanine Aminotransferase 14 U/L (6-50); Albumin Level 5.0 g/dL (3.5-5.1); Alkaline Phosphatase 74 U/L (38-126); Anion Gap 10 mmol/L (4-12); Aspartate Amino Transferase 27 U/L (17-59); Bilirubin,Total 1.1 mg/dL (0.2-1.3); Blood Urea Nitrogen 13 mg/dL (9-20); Calcium 9.1 mg/dL (8.4-10.2); Carbon Dioxide 25 mmol/L (22-30); Chloride 99 mmol/L (98-107); Estimated CRCL calculation 77 ml/min; Estimated Glomerular Filt Rate > 60; Glucose 100 mg/dL (65-110); Lipase 66 U/L (23-300); Potassium 3.6 mmol/L (3.4-5.0); Sodium 134 mmol/L (137-145); Total Protein 8.2 g/dL (6.3-8.2)
[2025-08-08] MEDS: HYDROmorphone HCL INJ (*CRX) 1 MG/ML SYR IV PUSH (20:05)
[2025-08-08] MEDS: KETOROLAC 15 MG/ML VIAL (*BKC) IV PUSH (21:41)
[2025-08-08 22:42] VITALS: BMI 25.5
--- NOTE | 2025-08-08 22:43 | ADMGEN ---
This patient, Fazal Welch, was admitted to [facility] Surg Room 307-02. Patient/family oriented to hospital policies and general routines including ID bracelet, bed and alarms, visiting hours, pain management, procedures, bathroom and other care routines, personal items, smoking policy, room service/diet, and visiting hours. Information on how to activate the Rapid Response Team has been discussed. Patient/Family are encouraged to report perceived risks to care and to ask questions if they do not understand what they are told or what they should do.
[2025-08-08 23:00] VITALS: PULSE 76; RESP 16; O2SAT 99
--- NOTE | 2025-08-08 23:12 | WPDURCON ---
Assessment and Plan Assessment and plan (1) Hydronephrosis: Code(s): N13.30 - Unspecified hydronephrosis Status: Acute Assessment and Plan: Hydronephrosis appears to be related to UPJ obstruction recommend n.p.o. at midnight if pain uncontrolled plan for possible cystoscopy retrograde pyelogram and stent placement. Ultimately he will likely need a Lasix renal scan to determine function and presence of obstruction if UPJ obstruction is present he may benefit from robotic pyeloplasty. I do not perform that he would be referred to one of my colleagues that specializes in that procedure, Dr. Bradford. Patient and voiced understanding were agreeable all questions were answered to satisfaction in layman's terms. Urology Consult Note HPI Date Seen: 08/08/25 Primary Care Provider: David Peters, PA Consult Narrative Narrative: Fazal Welch is a 30 year old male With a 5-day history of right-sided flank pain he has not had any nausea or vomiting pain not controlled with morphine or Dilaudid controlled with Toradol. Denies fevers chills. Denies hematuria dysuria no prior history of stone disease CT scan of the abdomen pelvis reveals a dilated renal pelvis with hydronephrosis to the UPJ with the appearance of a UPJ obstruction. He denies colic with alcohol or caffeine use. Denies fevers or chills. No prior history of surgeries. No family history of stone disease. Review of Systems Review of Systems: All systems reviewed & are unremarkable except as noted in HPI and below Constitutional: Constitutional: Reports as per HPI and Reports no additional constitutional complaints Eyes: Eyes: Reports as per HPI and Reports no additional eye complaints ENT: Reports system reviewed and no additional complaints, except as documented Cardiovascular: Cardiovascular: Reports as per HPI and Reports no additional cardiovascular complaints Respiratory: Respiratory: Reports as per HPI and Reports no additional respiratory complaints Gastrointestinal: Gastrointestinal: Reports as per HPI and Reports no additional gastrointestinal complaints Genitourinary: Genitourinary: Reports flank pain Musculoskeletal: Musculoskeletal: Reports no additional musculoskeletal complaints Integumentary/Breasts: Skin/Breast: Reports system reviewed and no additional complaints, except as docu Neurologic: Reports system reviewed and no additional complaints, except as documented Psychiatric: Psychiatric: Reports no additional psychiatric complaints Endocrine: Endocrine: Reports no additional endocrine complaints Hematologic/Lymphatic: Hematologic/Lymphatic: Reports no additional hematologic/lymphatic complaints Allergic/Immunologic: Allergic/Immunologic: Reports no additional allergic/immunologic complaints [facility] Past Medical History Medical History History of kidney stones Family History Family History (Updated 08/08/25 @ 23:03 by Melanie Ackerman RN) Grandparent Prostate carcinoma Social History Social History Smoking status: Former smoker Tobacco type: cigarettes Alcohol intake: current Substance use: never Substance use type: does not use Lack of Transportation: No Lack of Food: Never True Current Housing: I Have Housing Concerned About Future Housing: No Difficulty Paying Gas/Electric Bills: No Difficulty Paying for Meds: No Currently Unemployed: No Education: High School Diploma/GED Difficulty w/ Childcare or Family Care: No Spiritual care concerns: No Meds Home Medications and Allergies Home Medications ?Medication ?Instructions ?Recorded ?Confirmed ?Type amoxicillin 600 mg-potassium 10 ml PO BID 10 days #200 mL 08/03/25 Rx clavulanate 42.9 mg/5 mL oral suspension (Augmentin ES-) ondansetron 4 mg disintegrating 4 mg PO Q6H PRN nausea and 08/03/25 Rx tablet vomiting #10 tabs tramadol 5 mg/mL oral solution 100 mg (20 mL) PO Q6H PRN pain 7 08/03/25 Rx days #200 mL Allergies Allergy/AdvReac Type Severity Reaction Status Date / Time No Known Allergies Allergy Verified 08/08/25 23:02 Vital Signs Vital Signs - 24 hr 08/08/25 17:31 Temperature 37.1 C Pulse Rate 76 Respiratory Rate 16 Blood Pressure 138/80 Pulse Oximetry 99 Oxygen Delivery Room Air Exam Const: General: cooperative and healthy appearing; No ill appearing HENMT: Head: normal to inspection, normocephalic and atraumatic Eyes: General: appearance normal, both eyes and all related structures Neck: Neck: normal visual inspection Resp: Effort & Inspection: normal respiratory effort and able to speak in complete sentences Cardio: Rate: regular rate Rhythm: regular rhythm GI: Inspection: normal to inspection and non-distended Extrem: General: normal to inspection Psych: Appearance: grossly normal Results Labs 08/08/25 19:17 08/08/25 19:17 Labs: Short CBC 08/08/25 Range/Units 19:17 WBC 12.9 H (4.5-10.0) K/mm3 Hgb 14.3 (14.0-18.0) g/dL Hct 42.7 (42.0-52.0) % Plt Count 285 (150-375) k/mm3 BMP 08/08/25 19:17 Sodium 134 L Potassium 3.6 Chloride 99 Carbon Dioxide 25 BUN 13 Creatinine 1.11 Glucose 100 Calcium 9.1 Liver Function 08/08/25 Range/Units 19:17 Total Bilirubin 1.1 (0.2-1.3) mg/dL AST 27 (17-59) U/L ALT 14 (6-50) U/L Alkaline Phosphatase 74 (38-126) U/L Albumin 5.0 (3.5-5.1) g/dL Urine 08/08/25 Range/Units 19:17 Urine Color Yellow (Yellow) Urine Appearance Clear (Clear) Urine pH 6.0 (5.0-9.0) Ur Specific [place] 1.014 (1.001-1.035) Urine Protein Negative (Negative) mg/dL Urine Glucose (UA) Negative (Negative) mg/dL Imaging My impression: right UPJO
[2025-08-08] MEDS: SODIUM CHLORIDE 0.9% IV 1,000 ML 125 ML IV CONT (23:28)
[2025-08-09] VITALS (14 sets, daily range): BP systolic 106–146; BP diastolic 60–86; PULSE 45–78; RESP 12–16; TEMP 35.9–36.9; O2SAT 92–100
[2025-08-09] MEDS: KETOROLAC 30 MG/ML VIAL (*BKC) 15 MG IV PUSH (04:20)
[2025-08-09] MEDS: ONDANSETRON INJ 4 MG/2 ML VIAL IV PUSH (04:24)
[2025-08-09 06:18] LABS: Hematocrit 40.1 % (42.0-52.0); Hemoglobin 13.1 g/dL (14.0-18.0); Mean Corpuscular HGB Conc 32.7 g/dl (32-36); Mean Corpuscular Hemoglobin 29.0 pg (26-34); Mean Corpuscular Volume 88.9 fl (80-100); Platelet Count Result 225 k/mm3 (150-375); Red Blood Count 4.51 M/mm3 (4.6-6.20); White Blood Count 9.0 K/mm3 (4.5-10.0)
--- NOTE | 2025-08-09 06:38 | P.PNUR_ITS ---
Progress Note: A&P Assessment and Plan (1) Hydronephrosis of right kidney: Code(s): N13.30 - Unspecified hydronephrosis Status: Acute Assessment and Plan: * Persistent right flank pain with right hydronephrosis. Imaging is suggestive a UPJ obstruction as outlined right back. * Will plan cystoscopy with retrograde pyelography, possible ureteroscopy and right ureteral stent placement today Subjective Subjective Date/Time Seen: 08/09/25 06:38 Interval history: persistent flank pain Review of Systems Review of Systems: All systems reviewed & are unremarkable except as noted in HPI and below Exam Const: General: no acute distress Resp: Effort & Inspection: normal respiratory effort GI: Inspection: non-distended GI Palp: No abdominal tenderness and No Guarding due to palpation present (GI) Auscultation: normal bowel sounds Objective Data Vital Signs Vital Signs: Vital Signs - 24 hr 08/08/25 17:31 08/08/25 23:00 08/09/25 01:14 Temperature 98.7 F 97.9 F Pulse Rate 76 76 78 Respiratory Rate 16 16 14 Blood Pressure 138/80 122/65 Pulse Oximetry 99 99 98 Oxygen Delivery Room Air Room Air 08/09/25 04:25 Temperature 97.7 F Pulse Rate 72 Respiratory Rate 16 Blood Pressure 137/82 Pulse Oximetry 95 Oxygen Delivery Intake/Output Intake/Output: Intake & Output 08/06/25 08/07/25 08/08/25 08/09/25 23:59 23:59 23:59 23:59 Intake Total 1100 250 Balance 1100 250 Meds/Results Medications: Active Medications Generic Name Dose Route Start Last Admin Trade Name Freq PRN Reason Stop Dose Admin Acetaminophen 650 mg 08/08/25 21:29 Acetaminophen 325 Mg Tablet PO Q4H PRN Mild Pain (1-3) or Fever Hydromorphone HCl 0.5 mg 08/08/25 21:29 Hydromorphone Hcl Inj (*Crx) 1 Mg/Ml Syr IV PUSH Q4H PRN Pain Rated 7-10 Sodium Chloride 1,000 mls @ 125 mls/hr 08/08/25 21:30 08/08/25 23:28 Normal Saline Iv IV CONT 125 mls/hr .Q8H RODRIGO Administration Ceftriaxone Sodium 1 gm/ 50 mls @ 100 mls/hr 08/09/25 19:00 Sodium Chloride IVPB Q24H RODRIGO Ketorolac Tromethamine 15 mg 08/08/25 21:29 08/09/25 04:20 Ketorolac 30 Mg/Ml Vial (*Bkc) IV PUSH 08/13/25 21:28 15 mg Q6H PRN Administration Pain Rated 4-6 Ondansetron HCl 4 mg 08/08/25 21:29 08/09/25 04:24 Ondansetron Inj 4 Mg/2 Ml Vial IV PUSH 4 mg Q4H PRN Administration Nausea Radiology Results: ITS Impressions Abdomen/Pelvis CT 08/08/25 20:37 IMPRESSION: Severe right hydronephrosis with asymmetric decreased enhancement seen. There is no obstructive stone evident. All CT scans at this facility are performed using low dose modulation techniques as appropriate to perform exam including the following: automated exposure control; use of iterative reconstruction technique; adjustment of the mA and/or kV according to patient size (this includes techniques or standardized protocols for targeted exams where dose is matched to indication/reason for exam). Labs Labs: Laboratory Results - last 24 hr 08/08/25 08/09/25 19:17 05:57 WBC 12.9 H 9.0 RBC 4.91 4.51 L Hgb 14.3 13.1 L Hct 42.7 40.1 L MCV 87.0 88.9 MCH 29.1 29.0 MCHC 33.5 32.7 RDW 12.9 13.0 Plt Count 285 225 MPV 9.8 10.2 Immature Gran % (Auto) 0.5 Neut % (Auto) 81.9 H Lymph % (Auto) 9.5 L [place] % (Auto) 7.6 Eos % (Auto) 0.3 Baso % (Auto) 0.2 Lymph # (Auto) 1.23 [place] # (Auto) 1.0 H Eos # (Auto) 0.0 Baso # (Auto) 0.0 Abs Immat Gran (auto) 0.06 H Absolute Neuts (auto) 10.5 H Absolute Nucleated RBC 0.000 Nucleated RBC % 0.0 Sodium 134 L Potassium 3.6 Chloride 99 Carbon Dioxide 25 Anion Gap 10 BUN 13 Creatinine 1.11 Estim Creat Clear Calc 77 Estimated GFR > 60 Glucose 100 Calcium 9.1 Total Bilirubin 1.1 AST 27 ALT 14 Alkaline Phosphatase 74 Total Protein 8.2 Albumin 5.0 Lipase 66 Urine Color Yellow Urine Appearance Clear Urine pH 6.0 Ur Specific [place] 1.014 Urine Protein Negative Urine Glucose (UA) Negative Urine Ketones 1+ H Ur Blood (Man) Negative Urine Nitrate Negative Urine Bilirubin Negative Urine Urobilinogen 1.0 Leukocyte Esterase Rfl Negative
[2025-08-09 06:41] LABS: Anion Gap 8 mmol/L (4-12); Blood Urea Nitrogen 11 mg/dL (9-20); Calcium 8.5 mg/dL (8.4-10.2); Carbon Dioxide 25 mmol/L (22-30); Chloride 102 mmol/L (98-107); Estimated CRCL calculation 70 ml/min; Estimated Glomerular Filt Rate > 60; Glucose 96 mg/dL (65-110); Potassium 4.1 mmol/L (3.4-5.0); Sodium 135 mmol/L (137-145)
--- NOTE | 2025-08-09 06:43 | WPDHPUPDATE1 ---
History and Physical Update Update Date/Time: 08/09/25 06:43 History and Physical has been reviewed, including an updated exam of the patient. There are NO changes in the patient's condition. Risks, benefits, and alternatives have been discussed and questions answered. Patient agrees to proceed with procedure.
[2025-08-09] MEDS: LACTATED RINGERS 1,000 ML 30 ML IV CONT (07:15)
--- NOTE | 2025-08-09 07:25 | WPDANESEPPF ---
Anes - Initial Pre Proc Eval Procedure: Operation Date: 08/09/25 07:30 Proposed Procedures p Cystoscopy, Possible Right Retrograde Pyelogram, Possible Right Stent Placement, Possible Stone Extraction, Possible Holium Laser Lithotripsy(Right) - Prabhakar Yusuf MD Date/Time: 08/09/25 07:25 Surgeon: Abebe Montes MD Pre Op Diagnosis: Obstructing hydronephrosis Patient Data Age: 30 Gender: M Height: 1.68 m Weight: 71.8 kg Last Vital Signs Temp 36.5 C 08/09/25 04:25 Pulse 72 08/09/25 04:25 Resp 16 08/09/25 04:25 BP 137/82 08/09/25 04:25 Pulse Ox 95 08/09/25 04:25 O2 Del Method Room Air 08/08/25 23:00 Allergies Allergy/AdvReac Type Severity Reaction Status Date / Time No Known Allergies Allergy Verified 08/08/25 23:02 Home Medications ?Medication ?Instructions ?Recorded ?Confirmed ?Type amoxicillin 600 mg-potassium 10 ml PO BID 10 days #200 mL 08/03/25 Rx clavulanate 42.9 mg/5 mL oral suspension (Augmentin ES-) ondansetron 4 mg disintegrating 4 mg PO Q6H PRN nausea and 08/03/25 Rx tablet vomiting #10 tabs tramadol 5 mg/mL oral solution 100 mg (20 mL) PO Q6H PRN pain 7 08/03/25 Rx days #200 mL Laboratory Tests 08/08/25 08/09/25 19:17 05:57 WBC 12.9 H K/mm3 9.0 K/mm3 (4.5-10.0) (4.5-10.0) RBC 4.91 M/mm3 4.51 L M/mm3 (4.6-6.20) (4.6-6.20) Hgb 14.3 g/dL 13.1 L g/dL (14.0-18.0) (14.0-18.0) Hct 42.7 % 40.1 L % (42.0-52.0) (42.0-52.0) MCV 87.0 fl 88.9 fl (80-100) (80-100) MCH 29.1 pg 29.0 pg (26-34) (26-34) MCHC 33.5 g/dl 32.7 g/dl (32-36) (32-36) RDW 12.9 % 13.0 % (11.5-14.5) (11.5-14.5) Plt Count 285 k/mm3 225 k/mm3 (150-375) (150-375) MPV 9.8 fl 10.2 fl (7.4-10.4) (7.4-10.4) Immature Gran % (Auto) 0.5 % (0-0.5) Neut % (Auto) 81.9 H % (45.5-73.1) Lymph % (Auto) 9.5 L % (18.3-44.2) [place] % (Auto) 7.6 % (2.6-8.5) Eos % (Auto) 0.3 % (0-4.4) Baso % (Auto) 0.2 % (0.2-1.2) Lymph # (Auto) 1.23 K/mm3 (0.9-3.2) [place] # (Auto) 1.0 H K/mm3 (0.1-0.6) Eos # (Auto) 0.0 K/mm3 (0-0.3) Baso # (Auto) 0.0 K/mm3 (0.0-0.1) Abs Immat Gran (auto) 0.06 H K/mm3 (0.00-0.031) Absolute Neuts (auto) 10.5 H K/mm3 (1.3-6.7) Absolute Nucleated RBC 0.000 K/mm3 (0.0-0.012) Nucleated RBC % 0.0 % (0.0-0.2) Sodium 134 L mmol/L 135 L mmol/L (137-145) (137-145) Potassium 3.6 mmol/L 4.1 mmol/L (3.4-5.0) (3.4-5.0) Chloride 99 mmol/L 102 mmol/L (98-107) (98-107) Carbon Dioxide 25 mmol/L 25 mmol/L (22-30) (22-30) Anion Gap 10 mmol/L 8 mmol/L (4-12) (4-12) BUN 13 mg/dL 11 mg/dL (9-20) (9-20) Creatinine 1.11 mg/dL 1.22 mg/dL (0.7-1.3) (0.7-1.3) Estim Creat Clear Calc 77 ml/min 70 ml/min Estimated GFR > 60 > 60 (59 - ) (59 - ) Glucose 100 mg/dL 96 mg/dL (65-110) (65-110) Calcium 9.1 mg/dL 8.5 mg/dL (8.4-10.2) (8.4-10.2) Total Bilirubin 1.1 mg/dL (0.2-1.3) AST 27 U/L (17-59) ALT 14 U/L (6-50) Alkaline Phosphatase 74 U/L (38-126) Total Protein 8.2 g/dL (6.3-8.2) Albumin 5.0 g/dL (3.5-5.1) Lipase 66 U/L (23-300) Urine Color Yellow (Yellow) Urine Appearance Clear (Clear) Urine pH 6.0 (5.0-9.0) Ur Specific [place] 1.014 (1.001-1.035) Urine Protein Negative mg/dL (Negative) Urine Glucose (UA) Negative mg/dL (Negative) Urine Ketones 1+ H mg/dL (Negative) Ur Blood (Man) Negative (Negative) Urine Nitrate Negative (Negative) Urine Bilirubin Negative (Negative) Urine Urobilinogen 1.0 mg/dL (<2.0) Leukocyte Esterase Rfl Negative BARBRA/UL (Negative) Patient hx anesthesia problems: none Family hx anesthesia problems: none Results Review: All pre-operative results and documents have been reviewed as part of the pre-operative evaluation. [facility] Past Medical History Medical History History of kidney stones Family History Family History (Updated 08/08/25 @ 23:03 by Melanie Ackerman RN) Grandparent Prostate carcinoma Social History Social History Smoking status: Former smoker Tobacco type: cigarettes Alcohol intake: current Substance use: never Substance use type: does not use Lack of Transportation: No Lack of Food: Never True Current Housing: I Have Housing Concerned About Future Housing: No Difficulty Paying Gas/Electric Bills: No Difficulty Paying for Meds: No Currently Unemployed: No Education: High School Diploma/GED Difficulty w/ Childcare or Family Care: No Spiritual care concerns: No Anes - Eval Final PreProcedure Day of Procedure 08/09/25 07:25 Patient weight: overweight Heart: regular rate and rhythm Lungs: clear to auscultation Airway: Mallampati scale class II Neurological: alert and oriented Last oral intake: >/= 8 hours ASA classification: II Emergent: no Anesthetic plan: proceed Anesthesia type and monitoring: general GIVS and standard monitoring Results Review: All pre-operative results and documents have been reviewed as part of the pre-operative evaluation. Informed Consent: The patient's anesthetic plan and its attendant risks and benefits were discussed with the patient/family/POA. Questions were solicited and answers provided to the satisfaction of the patient/family/POA.
--- NOTE | 2025-08-09 07:35 | P.HP_ITS ---
H&P: HPI History of Present Illness Date/Time: 08/09/25 07:35 Chief Complaint: - R flank pain Narrative: Patient is a 30 yo male with PMH of kidney stones who presented to the ED with complaints of R flank pain. Patient was originally seen in the [place] ED 08/03 and diagnosed with hydroureteronephrosis and a UTI and sent home with Augmentin and pain control. Patient presented with continued R flank pain with radiation to the RLQ. Did have some associated nausea/vomiting. Denies fever or chills. Denied hematuria. In ED, WBC 9.0, HGB 13.1, Na 135, Cr 1.22. UA 1+ ketones. CT A/P with severe right hydronephrosis. Patient was seen postprocedure this a.m. and is doing well. States his pain has mostly resolved. Is having some burning with urination after the procedure and did see a little bit of blood in his urine. He is hoping to go home today. Review of Systems Review of Systems: All systems reviewed & are unremarkable except as noted in HPI and below PMFSH Past Medical History Medical History History of kidney stones Family History Family History (Updated 08/08/25 @ 23:03 by Melanie Ackerman RN) Grandparent Prostate carcinoma Social History Social History Smoking status: Former smoker Tobacco type: cigarettes Alcohol intake: current Substance use: never Substance use type: does not use Lack of Transportation: No Lack of Food: Never True Current Housing: I Have Housing Concerned About Future Housing: No Difficulty Paying Gas/Electric Bills: No Difficulty Paying for Meds: No Currently Unemployed: No Education: High School Diploma/GED Difficulty w/ Childcare or Family Care: No Spiritual care concerns: No Meds Home Medications and Allergies Home Medications ?Medication ?Instructions ?Recorded ?Confirmed ?Type amoxicillin 600 mg-potassium 10 ml PO BID 10 days #200 mL 08/03/25 Rx clavulanate 42.9 mg/5 mL oral suspension (Augmentin ES-) ondansetron 4 mg disintegrating 4 mg PO Q6H PRN nausea and 08/03/25 Rx tablet vomiting #10 tabs tramadol 5 mg/mL oral solution 100 mg (20 mL) PO Q6H P RN pain 7 08/03/25 Rx days #200 mL Allergies Allergy/AdvReac Type Severity Reaction Status Date / Time No Known Allergies Allergy Verified 08/08/25 23:02 Vital Signs Vital Signs - 24 hr 08/08/25 17:31 08/08/25 23:00 08/09/25 01:14 Temperature 98.7 F 97.9 F Pulse Rate 76 76 78 Respiratory Rate 16 16 14 Blood Pressure 138/80 122/65 Pulse Oximetry 99 99 98 Oxygen Delivery Room Air Room Air 08/09/25 04:25 Temperature 97.7 F Pulse Rate 72 Respiratory Rate 16 Blood Pressure 137/82 Pulse Oximetry 95 Oxygen Delivery Exam Narrative: General: NAD Eyes: EOMI ENT: neck supple Cardiovascular: Regular rate and rhythm Respiratory: Clear to auscultation, respirations even and unlabored on RA Gastrointestinal: Soft, non tender Genitourinary: no suprapubic tenderness Musculoskeletal: No edema Skin: warm, dry Neuro: Alert. Psych: Mood appropriate H&P: Results Labs Labs: Short CBC 08/08/25 08/09/25 Range/Units 19:17 05:57 WBC 12.9 H 9.0 (4.5-10.0) K/mm3 Hgb 14.3 13.1 L (14.0-18.0) g/dL Hct 42.7 40.1 L (42.0-52.0) % Plt Count 285 225 (150-375) k/mm3 BMP 08/08/25 08/09/25 19:17 05:57 Sodium 134 L 135 L Potassium 3.6 4.1 Chloride 99 102 Carbon Dioxide 25 25 BUN 13 11 Creatinine 1.11 1.22 Glucose 100 96 Calcium 9.1 8.5 Liver Function 08/08/25 Range/Units 19:17 Total Bilirubin 1.1 (0.2-1.3) mg/dL AST 27 (17-59) U/L ALT 14 (6-50) U/L Alkaline Phosphatase 74 (38-126) U/L Albumin 5.0 (3.5-5.1) g/dL Urine 08/08/25 Range/Units 19:17 Urine Color Yellow (Yellow) Urine Appearance Clear (Clear) Urine pH 6.0 (5.0-9.0) Ur Specific [place] 1.014 (1.001-1.035) Urine Protein Negative (Negative) mg/dL Urine Glucose (UA) Negative (Negative) mg/dL Assessment and Plan Assessment and plan (1) Hydronephrosis of right kidney: Code(s): N13.30 - Unspecified hydronephrosis Status: Acute Assessment and Plan: - admit CT A/P with severe right hydronephrosis. - Cr stable. Afebrile with no leukocytosis. UA bland other than 1+ ketones. on IV Rocephin - s/p cystoscopy, right retrograde pyelography and uterus could be which showed marked narrowing at the right UPJ without stones or year the to pathology. Suspect congenital narrowing. Right ureteral stent placed. -urology following and ordered Lasix renal scan - continue pain control, IV fluids Hospitalist MIPS Advance Care Plan I have confirmed that the patient's Advanced Care Plan is present, code status is documented, or surrogate decision maker is listed in patient medical record.: Yes Medication Reconciliation I have utilized all available resources to obtain, update and review the patients current medications (includes all prescriptions, OTC, herbals, cannabis, and nutritional supplements).: Yes The patient is not eligible for med reconciliation; the patient is in a emergent medical situation where delaying treatment would jeopardize the patients health.: No
[2025-08-09] MEDS: LIDOCAINE 2% GEL UROJET 10 ML PKG MUCOUS MEM (07:47)
--- NOTE | 2025-08-09 07:55 | W.PM.PROC2 ---
Procedure Note - Detailed Date of Procedure 08/09/25 Pre-op Diagnosis Obstructing right hydronephrosis Post-op Diagnosis Other ( Right ureteropelvic junction obstruction) Procedure Performed Cystoscopy, right retrograde pyelography, right ureteroscopy, right ureteral stent placement Surgeon Prabhakar Yusuf MD Anesthesia General Findings 1. Marked narrowing at the right ureteropelvic junction without stones or urothelial pathology Description of Procedure Patient is brought to the operative suite where he has prepped draped in routine sterile fashion while in dorsal lithotomy position after the uneventful induction of a general LMA anesthetic. Cystoscopy was undertaken 19 F rigid cystoscope. There was no urethral stricture and negligible prostatic enlargement. Bladder mucosa is is no intravesical pathology. He has a single orthotopic ureteral orifice 0.035 glidewire was advanced into his right pelvis and retrograde pyelography was obtained with an angiographic catheter has marked concentric narrowing at the right ureteropelvic junction. This is a very short length of narrowing measuring approximately 1 cm. I dilated the distal ureter an 8 F/ 10 F dilator and performed right flexible ureteroscopy with a 7.5 F digital ureteral scope. I could not get beyond the point of narrowing but careful inspection at that site fails to identify any stones or urothelial pathology. 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 At this point placed a 4 8 stent proximal pelvis and distal bladder. Scopes and he was taken recovery room condition. Drains Yes Packing No Pathology None sent Complications No immediate complications
[2025-08-09] MEDS: SODIUM CHLORIDE 0.9% IV 1,000 ML 125 ML IV CONT (09:50)
[2025-08-09] MEDS: FUROSEMIDE INJ 40 MG/4 ML VIAL IV PUSH (13:12)
--- NOTE | 2025-08-09 14:45 | PM.DS ---
DS: Admitting Diagnosis Discharge Date 08/09/25 Admitting Diagnosis - R hydronephrosis - flank pain DS: Discharge Diagnosis Discharge Diagnosis (1) Hydronephrosis of right kidney: Code(s): N13.30 - Unspecified hydronephrosis Status: Acute DS: Summary Hospital Course Reason for hospitalization: - R hydronephrosis - flank pain Hospital Course: Patient is a 30 yo male with PMH of kidney stones who presented to the ED with complaints of R flank pain. Patient was originally seen in the [place] ED 08/03 and diagnosed with hydroureteronephrosis and a UTI and sent home with Augmentin and pain control. Patient presented with continued R flank pain with radiation to the RLQ. Did have some associated nausea/vomiting. Denies fever or chills. Denied hematuria. In ED, WBC 9.0, HGB 13.1, Na 135, Cr 1.22. UA 1+ ketones. CT A/P with severe right hydronephrosis. S/p cystoscopy, right retrograde pyelography and uterus could be which showed marked narrowing at the right UPJ without stones or year the to pathology. Suspect congenital narrowing. Right ureteral stent placed. Urology ordered a NM Lasix scan to evaluate renal function which showed mildly decreased left renal function, Right infraspinatus and right kidney with mildly delayed time to peak and moderately delayed T1/2 of activity clearance from the right renal kidney consistent with partial obstruction that is likely clinically significant. Urology cleared for discharge and recommended outpatient follow-up with Dr. Galindo at [facility] for stent removal and to discuss pyeloplasty. Patient was discharged home in stable condition. Status at Discharge Functional status at discharge: independent ambulation Overall status at discharge: patient is back to baseline Time Spent with Patient Time attestation: Total time spent providing and/or coordinating discharge services: Exam Narrative: General: NAD Eyes: EOMI ENT: neck supple Cardiovascular: Regular rate and rhythm Respiratory: Clear to auscultation, respirations even and unlabored on RA Gastrointestinal: Soft, non tender Genitourinary: no suprapubic tenderness Musculoskeletal: No edema Skin: warm, dry Neuro: Alert. Psych: Mood appropriate DS: Data Data Completed and Pending Completed studies during hospitalization: ITS Impressions Abdomen/Pelvis CT 08/08/25 20:37 IMPRESSION: Severe right hydronephrosis with asymmetric decreased enhancement seen. There is no obstructive stone evident. All CT scans at this facility are performed using low dose modulation techniques as appropriate to perform exam including the following: automated exposure control; use of iterative reconstruction technique; adjustment of the mA and/or kV according to patient size (this includes techniques or standardized protocols for targeted exams where dose is matched to indication/reason for exam). Retrograde Pyelogram 08/09/25 08:32 IMPRESSION: 1. Right UPJ obstruction with moderate right hydronephrosis and delayed right nephrogram. 2. Placement of a right internal ureteral stent which is in expected position. Renal Scan w/Medication NM 08/09/25 14:06 IMPRESSION: 1. Mildly decreased left renal function with left kidney contributing only 41% to total renal function. 2. Right infraspinatus and right kidney with mildly delayed time to peak and moderately delayed T1/2 of activity clearance from the right renal kidney consistent with partial obstruction that is likely clinically significant. Labs on day of discharge: Labs from last 24 hours 08/09/25 08/08/25 05:57 19:17 WBC 9.0 12.9 H RBC 4.51 L 4.91 Hgb 13.1 L 14.3 Hct 40.1 L 42.7 MCV 88.9 87.0 MCH 29.0 29.1 MCHC 32.7 33.5 RDW 13.0 12.9 Plt Count 225 285 MPV 10.2 9.8 Immature Gran % (Auto) 0.5 Neut % (Auto) 81.9 H Lymph % (Auto) 9.5 L [place] % (Auto) 7.6 Eos % (Auto) 0.3 Baso % (Auto) 0.2 Lymph # (Auto) 1.23 [place] # (Auto) 1.0 H Eos # (Auto) 0.0 Baso # (Auto) 0.0 Abs Immat Gran (auto) 0.06 H Absolute Neuts (auto) 10.5 H Absolute Nucleated RBC 0.000 Nucleated RBC % 0.0 Sodium 135 L 134 L Potassium 4.1 3.6 Chloride 102 99 Carbon Dioxide 25 25 Anion Gap 8 10 BUN 11 13 Creatinine 1.22 1.11 Estim Creat Clear Calc 70 77 Estimated GFR > 60 > 60 Glucose 96 100 Calcium 8.5 9.1 Total Bilirubin 1.1 AST 27 ALT 14 Alkaline Phosphatase 74 Total Protein 8.2 Albumin 5.0 Lipase 66 Urine Color Yellow Urine Appearance Clear Urine pH 6.0 Ur Specific [place] 1.014 Urine Protein Negative Urine Glucose (UA) Negative Urine Ketones 1+ H Ur Blood (Man) Negative Urine Nitrate Negative Urine Bilirubin Negative Urine Urobilinogen 1.0 Leukocyte Esterase Rfl Negative Discharge Plan Discharge Attending physician on discharge: Abebe Montes Consulting providers: Alyssa Mendoza; David Taylor Discharging Clinician: Alyssa Mendoza Anticipated Discharge Date/Time: 08/09/25 14:39 Patient Disposition: Home Activity: as tolerated Diet: regular Discharge Instructions: Take all medications as prescribed. Finish antibiotics if prescribed, even if you are feeling better. Follow-up with your primary care provider in one week. OK to return to work Tuesday without restrictions. Return to the emergency department if you develop chest pain, shortness of breath, persistent fever >100.4, confusion, loss of consciousness. Patient Instructions: Antibiotic Form, Ureteral Stent Placement (DC) Patient Language: Turkish Stand Alone Forms: General Discharge Information Follow-up/Referrals: Chet Bradford MD [Physician, Urology] - Call for Appointment Referral Note: call for appointment for follow-up in 2 weeks to discuss stent removal and surgery for UPJ obstruction Vashti,JALEN Rios [Primary Care Provider] - Call for Appointment Referral Note: hospital follow-up Discharge Medications: Continued amoxicillin-pot clavulanate [Augmentin ES-600] 600-42.9 mg/5 mL suspension for reconstitution 10 ml PO BID 10 Days Qty: 200 0RF ondansetron 4 mg tablet,disintegrating 4 mg PO Q6H PRN (Reason: nausea and vomiting) Qty: 10 0RF tramadol 5 mg/mL solution 100 mg PO Q6H PRN (Reason: pain) 7 Days Qty: 200 0RF Date of admission: 08/08/25 22:16 Primary Care Provider: VashtiDavid Admitting Provider: Abebe Montes Attending physician on admission: Abebe Montes Condition: Stable
--- OUTSIDE RECORDS SUMMARY | 2025-08-12 09:39 | XMS_ITS | Clinical Summary ---
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
== END 2025-08-09 15:18 | disposition home or self-care (01) ==
LOC: ANHED 19:10 → ANH3MEDSUR 08-09 06:30
PROVIDERS: Nurse Practitioner; Physician Assistant; Urology; Admitting Provider Internal Medicine; Emergency Provider Student in an Organized Health Care Education/Training Program; PCP Physician Assistant; Visit Provider Internal Medicine
PROC: (CPT 52352; principal; 2025-08-09 07:30)
DX: N13.2 Hydronephrosis with renal and ureteral calculous obstruction (principal); N18.9 Chronic kidney disease, unspecified; Z87.442 Personal history of urinary calculi; Z87.891 Personal history of nicotine dependence; Z80.42 Family history of malignant neoplasm of prostate
CPT/HCPCS: 52332; 36415; 74177; 74420; 78708; 80048; 80053; 81003; 83690; 85025; 85027; 96361; 96365; 96375; 99285; J0690; A9562; C1769; C1894; C2617; G0378; J0696; J1100; J1171; J1885; J1938; J2270; J2405; J2704; J3010; J7030; J7120; Q9966; Q9967